=== PATIENT | male | born 2000 ===

== ENCOUNTER 2024-05-28 11:59 | Inpatient (IN) | payer OTHER ==
[~2024-05-28] VITALS: Ht 182.9 cm; Wt 142.9 kg
[2024-05-28 16:04] VITALS: BP 146/100
[2024-05-28 16:17] VITALS: BP 146/100
[2024-05-28] MEDS ORDERED: BUPR100 (17:03)
[2024-05-28] MEDS ORDERED: Haloperidol Lactate Inj. 5 MG/ML Injection IM PRN (17:45)
[2024-05-28] MEDS ORDERED: Polyethylene Glycol 3350 17 gm PO PRN (17:50)
[2024-05-28] MEDS ORDERED: LORazepam 2 MG Tab PO PRN (17:50)
[2024-05-28] MEDS ORDERED: TraZODone HCl 50 MG Tab PO PRN (17:50)
[2024-05-28] MEDS ORDERED: DiphenhydrAMINE HCl 50 MG/ML 1ML Vial IM PRN (17:50)
[2024-05-28] MEDS ORDERED: Haloperidol 5 MG Tab PO PRN (17:50)
[2024-05-28] MEDS ORDERED: Ondansetron 4 MG SoluTab MM PRN (17:50)
[2024-05-28] MEDS ORDERED: HydrOXYzine Pamoate 50 MG Cap PO PRN (17:50)
[2024-05-28] MEDS ORDERED: Ibuprofen 600 MG Tab PO PRN (17:50)
[2024-05-28] MEDS ORDERED: DiphenhydrAMINE HCl 50 MG Cap PO PRN (17:55)
[2024-05-28] MEDS ORDERED: Calcium Carbonate 500 MG Tab Chew PO PRN (17:55)
[2024-05-28] MEDS ORDERED: OLANZapine ODT 10 MG Tab MM PRN (17:55)
[2024-05-28] MEDS ORDERED: LORazepam 2 MG/ML 1ML Injection IM PRN (17:55)
[2024-05-28] MEDS ORDERED: Acetaminophen 325 MG TABLET PO PRN (17:55)
[2024-05-28] MEDS ORDERED: Melatonin 3 MG Tab PO PRN (17:55)
[2024-05-28] MEDS ORDERED: Aluminum Hydroxide 320MG/5ML 473 ML PO PRN (17:55)
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
[2024-05-28 19:31] VITALS: BP 156/95
--- NOTE | 2024-05-29 04:54 | NUR ---
SHIFT SUMMARY: PATIENT WAS IN THE DAYROOM WATCHING A MOVIE WITH STAFF AND PEERS AT THE BEGINNING OF THE SHIFT. HE STATED THAT HE HAD A "GOOD DAY". HE DENIED THOUGHTS OF SUICIDE OR SELF HARM THIS SHIFT. HE WAS PLEASANT AND COOPERATIVE WITH CARES. HE WAS COMPLIANT WITH EVENING MEDICATION ADMINISTRATION. HE PARTICIPATED IN SNACK AND WRAP UP GROUP AT 1999. HE THEN CONTINUED TO WATCH THE MOVIE, AND THEN WENT TO HIS ROOM TO GO TO BED, WHERE HE WAS NOTED TO BE RESTING QUIETLY WITH EYES CLOSED AND RESPIRATIONS CONFIRMED. CONTINUING TO MONITOR FOR SAFETY WITH Q15 MINUTE CHECKS.
[2024-05-29 08:26] VITALS: BP 160/107
[2024-05-29] MEDS ORDERED: Multivitamins 1 Tab PO SCH (09:00)
--- NOTE | 2024-05-29 16:49 | NUR ---
SHIFT SUMMARY: PT HAS PARTICIPATED IN GROUP SESSIONS TODAY. SPOKE TO MOTHER ON PHONE THIS AFTERNOON AND STATES HE IS HOMESICK AND WANTS TO GO HOME. REQUESTED TO TALK TO DR ABOUT LEAVING. INSTRUCTED THAT ARRANGING A RIDE AND DISCHARGE TAKES TIME AND WOULD PROBABLY BE DISCUSSED TOMORROW AND HE WAS ACCEPTABLE TO THIS PLAN. HE WILL WAIT TO TALK TO PHYSICIAN IN THE AM. DENIES SI, HI, HALLUCINATIONS. CONTINUE 15 MINUTE SAFETY CHECKS.
[2024-05-29 20:00] VITALS: BP 160/119
[2024-05-29] MEDS ORDERED: BuPROPion HCl SR 100 MG TabCR PO SCH ×2 (21:00)
--- NOTE | 2024-05-30 05:07 | NUR ---
PATIENT WAS AT THE TABLE IN THE DAY ROOM, INVOLVED IN ACTIVITIES WITH PEERS AND STAFF, AT THE BEGINNING OF THE SHIFT. HE DENIED SUICIDAL IDEATION OR THOUGHTS OF SELF HARMING THIS SHIFT. HE WAS COMPLIANT WITH EVENING MEDICATIONS. HE WAS TALKING MORE AND SMILING MORE, INTERACTING WELL WITH PEERS. HE PARTICIPATED IN SNACK TIME AND WRAP UP GROUP AT 2000 IN THE DINING AREA. HE WENT BACK TO THE DAY AREA AND WAS PLAYING A GAME WITH TWO PEERS. HE WENT TO BED ABOUT 2130 AND WAS NOTED TO BE RESTING QUIETLY WITH EYES CLOSED AND RESPIRATIONS CONFIRMED FOR THE REMAINDER OF THE SHIFT. CONTINUING TO MONITOR FOR SAFETY WITH Q15 MINUTE CHECKS.
[2024-05-30 08:19] VITALS: BP 157/107
--- NOTE | 2024-05-30 17:46 | NUR ---
SHIFT SUMMARY: PT A/O X4. PLEASANT AND COOPERATIVE. PT IN A HAPPY MOOD BUT MISSES HOME. HE SPOKE TO THE DOCTOR ABOUT GOING HOME AND HE SAID MAYBE ON SATURDAY AND PT WAS SATISFIED WITH THE TIME GIVEN. PT WAS ANXIOUS TODAY SO WAS GIVEN VISTARIL. THAT HELPED HIM A LOT HE SAID. HAS BEEN UP IN THE GROUP ROOM WATCHING MOVIES AND INTERACTING WILL OTHERS. WILL CONTINUE TO MONITOR.
[2024-05-30 19:23] VITALS: BP 163/98
--- NOTE | 2024-05-31 04:24 | NUR ---
SHIFT SUMMARY: PATIENT WAS IN THE DAY ROOM WITH STAFF AND PEERS WATCHING A MOVIE AT THE BEGINNING OF THE SHIFT. HE WAS NOTED TO HAVE A STRONG BODY ODOR, DESPITE HAVING SHOWERED FAIRLY REGULARLY. HE DENIED SUICIDAL IDEATION OR THOUGHTS OF SELF HARMING THIS SHIFT. HE PARTICIPATED IN SNACK AND WRAP UP GROUP AT 2000 IN THE DINING AREA. HE WAS COMPLIANT WITH EVENING MEDICATIONS. HE STATED THAT HIS DAY WAS "PRETTY GOOD". HE WENT TO BED AFTER SNACK, AND WAS NOTED TO BE RESTING QUIETLY WITH EYES CLOSED AND RESPIRATIONS CONFIRMED FOR THE REMAINDER OF THE SHIFT. CONTINUING TO MONITOR FOR SAFETY WITH Q15 MINUTE CHECKS.
[2024-05-31 12:22] VITALS: BP 139/92
--- NOTE | 2024-05-31 17:25 | NUR ---
SHIFT SUMMARY: PT A/O X4. DENIES TO BE SI,HI AND AVH. HAS BEEN UP IN THE GROUP DILAN WATCHING MOVEIS AND PLAYING DOMINOS. INTERACTING WITH OTHERS IN THE [place]. UP EATING DINNER AT THIS TIME. WILL CONTINUE TO MONITOR.
[2024-05-31 19:53] VITALS: BP 144/103
--- NOTE | 2024-06-01 04:30 | NUR ---
SHIFT SUMMARY PATIENT UP WATCHING TV WITH PEERS. DENIES SI, HI, OR AVH. VERBALIZING THAT HE FEELS IN BETTER CONTROL OF HIS EMOTIONS. COOPERATIVE WITH MEDICATIONS. APPEARS TO BE SLEEPING WELL T/O NIGHT WITH RESP EVEN AND UNLABORED. CONTINUE TO MONITOR Q15MIN
[2024-06-01 08:27] VITALS: BP 144/101
--- NOTE | 2024-06-01 08:59 | NUR ---
PT MALODOROUS. REVIEWED HOW TO SHOWER WITH PATIENT - DISCUSSED SCRUBBING UNDER ARMPITS, BETWEEN LEGS, UNDER ABDOMINAL ROLL, ETC. WITH SOAPY RAG. HE STATES HE UNDERSTANDS, BUT AFTER SHOWER AND NEW SCRUBS PATIENT REMAINED MALODOROUS. PT APPEARS TO NOT HAVE UNDERSTANDING OF BASIC HYGIENE. WILL NEED REPEATED EDUCATION.
--- NOTE | 2024-06-01 11:35 | NUR ---
DISCHARGE SUMMARY: REVIEWED DISCHARGE INSTRUCTIONS WITH PATIENT IN PERSON AND MOTHER VIA PHONE. BOTH VERBALIZED UNDERSTANDING OF ALL. REVIEWED THE IMPORTANCE OF MEDICATION COMPLIANCE AND GOING TO ALL FOLLOW UP APPOINTMENTS. THEY BOTH AGREE THAT HE WILL ATTEND THESE APPOINTMENTS. NO CURRENT SI/HI, NO HALLUCINATIONS. PATIENT EXCITED TO GO HOME AND SEE MOTHER. DISCHARGED AT 1134 VIA RIDE PROVIDED BY INSURANCE.
== END 2024-06-01 11:34 | disposition home or self-care (01) | DRG 882 ==
LOC: BHU 11:59
PROVIDERS: ADMIT Psychiatry & Neurology Psychiatry
DX: F43.25 Adjustment disorder with mixed disturbance of emotions and conduct (principal); R45.851 Suicidal ideations; F84.0 Autistic disorder; F41.9 Anxiety disorder, unspecified; F31.9 Bipolar disorder, unspecified; Z79.899 Other long term (current) drug therapy; Z79.1 Long term (current) use of non-steroidal anti-inflammatories (NSAID)
CPT/HCPCS: A9270